=== PATIENT | male | born 1975 | race American Indian/Alaskan Native ===

== ENCOUNTER 2021-11-19 13:12 | Emergency (ER) | payer MEDICARE ==
[2021-11-19] MEDS ORDERED: SODIUM CHLORIDE 0.9% 1000 ML 1,000 ML IV ONE (13:27)
--- NOTE | 2021-11-19 13:31 | Emergency Department Report ---
ED Syncope HPI - General Chief Complaint: Syncope Stated Complaint: SYNCOPE Time Seen by Provider: 11/19/21 13:26 Source: patient, EMS - History of Present Illness Initial Comments: Patient is 46 years old male with no significant past medical history. Patient brought to the emergency room via EMS from a local grocery store for evaluation of syncope. Patient was with his brother who noticed patient became lightheaded and about to fall so he called the. Patient denied any loss of consciousness. Patient stated that he has been dealing with cold recently. Patient was diaphoretic. Patient denied any chest pain or shortness of breath. He stated that he is back to normal. Timing/Prior Episodes: no prior history, single episode today Precipitating Factors: Positive: lightheadedness Context: standing Loss of Consciousness: no loss of consciousness Current Symptoms: back to normal - Related Data Allergies/Adverse Reactions: Allergies [place] And Derivatives Allergy (Verified 11/19/21 13:17) Hives Home Medications: Ambulatory Orders Ibuprofen [Motrin] 800 mg PO Q8H PRN #21 tablet 04/24/15 Mupirocin [Bactroban 2% Oint] 1 applic TP TID #1 tube 04/24/15 ED Review of Systems ROS: Stated complaint: SYNCOPE Other details as noted in HPI Comment: All other systems reviewed and negative Constitutional: denies: chills, fever Respiratory: denies: cough, shortness of breath, SOB with exertion, SOB at rest (For the last patient) Cardiovascular: denies: chest pain, palpitations Gastrointestinal: denies: abdominal pain, nausea, vomiting, diarrhea, constipation, hematemesis, melena, hematochezia Musculoskeletal: denies: back pain Neurological: denies: headache, weakness, numbness, paresthesias, confusion ED Past Medical Hx - Past Medical History Additional medical history: Uveitis. Decreased vision. - Social History Smoking Status: Current Every Day Smoker Substance Use Type: Marijuana - Medications Home Medications: Home Medications Medication Instructions Recorded Confirmed Last Taken Type Ibuprofen [Motrin] 800 mg PO Q8H PRN #21 tablet 04/24/15 Unknown Rx Mupirocin [Bactroban 2% Oint] 1 applic TP TID #1 tube 04/24/15 Unknown Rx ED Physical Exam - General Limitations: No Limitations General appearance: alert, in no apparent distress - Head Head exam: Present: atraumatic, normocephalic, normal inspection - Eye Eye exam: Present: normal appearance - ENT ENT exam: Present: normal exam, normal orophraynx, mucous membranes moist - Neck Neck exam: Present: normal inspection, full ROM. Absent: tenderness, meningismus - Respiratory Respiratory exam: Present: normal lung sounds bilaterally - Cardiovascular Cardiovascular Exam: Present: regular rate, normal rhythm, normal heart sounds - GI/Abdominal GI/Abdominal exam: Present: soft, normal bowel sounds. Absent: distended, tenderness, guarding, rebound, rigid, organomegaly, mass, bruit, pulsatile mass, hernia - Extremities Exam Extremities exam: Present: normal inspection, full ROM, normal capillary refill. Absent: tenderness, pedal edema, joint swelling, calf tenderness - Back Exam Back exam: Present: normal inspection, full ROM. Absent: CVA tenderness (R), CVA tenderness (L) - Neurological Exam Neurological exam: Present: alert, oriented X3, CN II-XII intact, normal gait, reflexes normal - Psychiatric Psychiatric exam: Present: normal mood - Skin Skin exam: Present: warm, intact, normal color ED Course Vital Signs 11/19/21 11/19/21 11/19/21 13:13 14:00 14:30 Temperature 99.0 F Pulse Rate 107 H 88 85 Respiratory 18 Rate Blood Pressure 113/69 113/82 127/83 [Left] O2 Sat by Pulse 100 Oximetry 11/19/21 11/19/21 11/19/21 14:45 14:59 15:00 Temperature 98.6 F Pulse Rate 87 89 Respiratory Rate Blood Pressure 122/84 130/88 [Left] O2 Sat by Pulse Oximetry ED Medical Decision Making - Lab Data Result diagrams: 11/19/21 13:32 11/19/21 13:32 - EKG Data -: EKG Interpreted by Co EKG shows normal: sinus rhythm Rate: normal - EKG Data Interpretation: no acute changes - Radiology Data Radiology results: report reviewed - Medical Decision Making Patient is 46 years old male with no significant past medical history. Patient brought to the emergency room via EMS from a local grocery store for evaluation of syncope. Patient was with his brother who noticed patient became lightheaded and about to fall so he called the. Patient denied any loss of consciousness. Patient stated that he has been dealing with cold recently. Patient was diaphoretic. Patient denied any chest pain or shortness of breath. He stated that he is back to normal. EKG is unremarkable. Labs reviewed and showed no abnormalities. CT brain is negative for acute finding. Chest x-ray is unremarkable. Patient stated that his feeling much better and he is back to normal. Patient advised to follow-up with his primary doctor in the next 2 to 3 days and to return to the ER if he develop any new symptoms. Critical care attestation.: If time is entered above; I have spent that time in minutes in the direct care of this critically ill patient, excluding procedure time. ED Disposition Clinical Impression: Syncope and collapse Disposition: 01 HOME / SELF CARE / HOMELESS Is pt being admited?: No Condition: Stable Instructions: Syncope (ED), Syncope, [id number] Referrals: PRIMARY CARE, [Referring] - 3-5 Days
--- NOTE | 2021-11-19 13:58 | XRay Report ---
CHEST 1 VIEW 11/19/2021 12:50 PM INDICATION / CLINICAL INFORMATION: cough. COMPARISON: None available. FINDINGS: SUPPORT DEVICES: None. HEART / MEDIASTINUM: No significant abnormality. LUNGS / PLEURA: No significant pulmonary or pleural abnormality. No pneumothorax. ADDITIONAL FINDINGS: No significant additional findings. IMPRESSION: 1. No acute findings. Signer Name: Bakari Souza MD Signed: 11/19/2021 1:54 PM Workstation Name: [id number]
[2021-11-19 14:39] LABS: Hematocrit 43.7 % (35.5-45.6); Mean Corpuscular HGB Conc 32 % (32-34); Mean Corpuscular Volume 90 fl (84-94); Platelet Count 261 K/mm3 (140-440); Red Blood Count 4.84 M/mm3 (3.65-5.03); Red Cell Distribution Width 14.8 % (13.2-15.2)
--- NOTE | 2021-11-19 14:51 | Cat Scan Report ---
CT BRAIN: 11/19/2021 INDICATION / CLINICAL INFORMATION: Syncope. COMPARISON: None available. FINDINGS: BRAIN/INTRACRANIAL STRUCTURES: Unenhanced CT images of the brain demonstrate no evidence of acute abn ormality. Ventricles and sulci are slightly prominent in size for a patient of this age, consistent with some m ild cerebral atrophy. There is no evidence of acute ischemic injury, hemorrhage, or mass. There are no abnormal extra-axial fluid collections. EXTRACRANIAL STRUCTURES: Unremarkable. IMPRESSION: No acute abnormality. All CT scans at this location are performed using dose reduction to ALARA by means of automated expos ure control. Signer Name: Wong Campbell MD Signed: 11/19/2021 2:46 PM Workstation Name: [id number]
[2021-11-19 14:56] LABS: BUN/Creatinine Ratio 8; Blood Urea Nitrogen 11 mg/dL (9-20); Calcium 9.2 mg/dL (8.4-10.2); Hemolysis Index 47
[2021-11-19 16:03] LABS: Band Neutrophils # (Manual) 0.1 K/mm3; Giant Platelets Few; Platelet Estimate Consistent w Auto; RBC Morphology Normal; Total Cells Counted 100
[2021-11-19 16:43] VITALS: BP 120/88
--- NOTE | 2021-11-20 11:46 | Electrocardiograph Report ---
[facility] Test Date: 2021-11-19 Test Time: 13:38:02 Pat Name: MARY JOINER Department: Room: Gender: M Editing Clerk: LYNDON : 1975 Requested By: DONNA LARA Order Number: [id number] Reading MD: Broderick Funez Measurements Intervals [place] Rate: 92 P: 33 IN: 157 QRS: 1 QRSD: 73 T: 102 QT: 341 QTc: 422 Interpretive Statements Sinus rhythm Nonspecific T abnrm, anterolateral leads No previous ECG available for comparison Electronically Signed On 11-20-2021 11:45:58 EST by Broderick Funez
== END 2021-11-19 16:43 | disposition home or self-care (01) ==
LOC: ED 13:12
DX: R55 Syncope and collapse (principal); F17.200 Nicotine dependence, unspecified, uncomplicated; F12.90 Cannabis use, unspecified, uncomplicated
CPT/HCPCS: 36415; 70450; 71045; 80048; 84484; 85007; 85025; 93005; 96360; 99285; J7030; Q0162